=== PATIENT | male | born 1940 ===

== ENCOUNTER 2017-01-12 20:06 | Inpatient (IN) | payer OTHER, MEDICAID ==
--- NOTE | 2017-01-12 21:04 | ED PDOC ---
HPI: Psych/Substance Abuse Time Seen by Provider: 01/12/17 20:06 Chief Complaint (Nursing): Alcohol Ingestion Chief Complaint (Provider): Alcohol Ingestion History Per: Patient History/Exam Limitations: no limitations Current Symptoms Are (Timing): Still Present Additional Complaint(s): 68 y/o male brought into the emergency department for alcohol intoxication. Patient reports he has right foot pain after he fell outside his house while trying to get inside. Denies any further medical complaints. Past Medical History Reviewed: Historical Data, Nursing Documentation, Vital Signs Vital Signs: Last Vital Signs Temp 98.1 F 01/12/17 20:07 Pulse 90 01/12/17 20:07 Resp 16 01/12/17 20:07 BP 141/88 01/12/17 20:07 Pulse Ox 100 01/12/17 20:07 - Medical History PMH: No Chronic Diseases - Family History Family History: States: Unknown Family Hx - Allergies Allergies/Adverse Reactions: Allergies Allergy/AdvReac Type Severity Reaction Status Date / Time No Known Allergies Allergy Verified 01/12/17 20:07 Review of Systems ROS Statement: Except As Marked, All Systems Reviewed And Found Negative Musculoskeletal: Positive for: Foot Pain (Right) Neurological: Positive for: Other (Alcohol intoxication) Physical Exam - Reviewed Nursing Documentation Reviewed: Yes Vital Signs Reviewed: Yes - Physical Exam Appears: Positive for: Non-toxic, No Acute Distress Head Exam: Positive for: ATRAUMATIC, NORMAL INSPECTION, NORMOCEPHALIC Skin: Positive for: Normal Color, Warm, Dry Extremity: Positive for: Normal ROM, Swelling (below lateral malleolus). Negative for: Tenderness, Pedal Edema, Deformity Neurologic/Psych: Positive for: Alert, Oriented (x3) - ECG O2 Sat by Pulse Oximetry: 100 (RA) Pulse Ox Interpretation: Normal Medical Decision Making Medical Decision Making: Time: 2099 Initial impression: Alcohol Intoxication Initial plan: --Right ankle x-ray --Right foot x-ray --Reevaluation CBC,COMP, ETOH ordered XR: (+) distal fibula fxr, as read by [facility] Podiatry consult obtained and resident called to bedside. Pt however, unable to stay stil;l and screaming in residents face. Pt medicated with Ativan to relieve him of agitation. Case endorsed to [facility] Thomas at midnight pending diagnostic review and podiatry eval Scribe Attestation: Documented by Radha Jordan, acting as a scribe for Marilyn Whitaker PA-C Provider Scribe Attestation: All medical record entries made by the Scribe were at my direction and personally dictated by me. I have reviewed the chart and agree that the record accurately reflects my personal performance of the history, physical exam, medical decision making, and the department course for this patient. I have also personally directed, reviewed, and agree with the discharge instructions and disposition. Disposition - Clinical Impression Clinical Impression: Alcohol use, Ankle fracture - Patient ED Disposition Is Patient to be Admitted: Transfer of Care - Disposition Disposition: Transfer of Care Disposition Time: 00:10 Condition: STABLE Forms: [facility] ([facility]) - POA Present On Arrival: Falls Or Trauma
[2017-01-13 00:37] LABS: BASO % 0.4 % (0.0-2.0); EOS # 0.1 K/uL (0.0-0.7); EOS % 0.8 % (0.0-4.0); HEMATOCRIT 39.8 % (35.0-51.0); LYMPH # 3.1 K/uL (1.0-4.3); LYMPH % 33.9 % (20.0-40.0); MEAN CELL VOLUME 95.4 fl (80.0-94.0); MEAN CORPUSCULAR HEMOGLOBIN 31.3 pg (27.0-31.0); MEAN CORPUSCULAR HGB CONC 32.8 g/dL (33.0-37.0); MEAN PLATELET VOLUME 6.4 fl (7.2-11.7); MONO # 0.5 K/uL (0.0-0.8); MONO % 5.8 % (0.0-10.0); NEUT # 5.4 K/uL (1.8-7.0); NEUT % 59.1 % (50.0-75.0); NRBC % 0.2 % (0.0-0.0); RED CELL DISTRIBUTION WIDTH 14.4 % (11.5-14.5); WHITE BLOOD COUNT 9.2 K/uL (4.8-10.8)
[2017-01-13 00:44] LABS: ALB/GLOB RATIO 1.2 (1.0-2.1); ALCOHOL SERUM 218 mg/dl (0-10); ALKALINE PHOSPHATASE 97 U/L (38-126); ALT/SGPT 30 U/L (21-72); AST/SGOT 35 U/L (17-59); BILIRUBIN,TOTAL 0.3 mg/dl (0.2-1.3); BLOOD UREA NITROGEN 13 mg/dl (9-20); CALCIUM 8.8 mg/dL (8.4-10.2); CARBON DIOXIDE 24 mmol/L (22-30); CHLORIDE 107 mmol/L (98-107); GFR AFRICAN-AMERICAN > 60; GLUCOSE,RANDOM 94 mg/dL (75-110); POTASSIUM 3.7 MMOL/L (3.6-5.0); SODIUM 147 mmol/l (132-148); TOTAL PROTEIN 7.3 G/DL (6.3-8.2)
--- NOTE | 2017-01-13 01:05 | CP.PCM.CON ---
History of Present Illness - History of Present Illness History of Present Illness: 68 year old intoxicated male was seen in the ED for right ankle pain. Patient states he fell outside his house. He reports pain to the right ankle. Denies n/v /sob/cp/chills or v. Unable to obtain full subjective examination secondary to intoxication. Patient denies PMH, PSH, Allergies, and Meds. When asked if patient drinks alcohol, patient denies as well. Past Patient History - Past Social History Smoking Status: Never Smoked - PSYCHIATRIC Hx Substance Use: No Meds Allergies/Adverse Reactions: Allergies Allergy/AdvReac Type Severity Reaction Status Date / Time No Known Allergies Allergy Verified 01/12/17 20:07 Physical Exam - Constitutional Appears: Well, No Acute Distress - Extremities Exam Additional comments: Vasc: DP and PT 2/4 bilaterally, temperature gradient WNL, CAR GREASER <3 seconds, digit hair present, localized non pitting edema noted to the right ankle Ortho: mild-moderate pain with palpation to the right lateral malleolus, moderate pain with right ankle ROM, unable to assess manual muscle testing of lower extremity secondary to intoxication Neuro: unable to asses secondary to intoxication Derm: no ecchymosis noted, no open lesions, no erythema noted, no clinical signs of infection - Neurological Exam Additional comments: Alcohol intoxication Results - Vital Signs Recent Vital Signs: Last Vital Signs Temp 98.1 F 01/12/17 20:07 Pulse 90 01/12/17 20:07 Resp 16 01/12/17 20:07 BP 141/88 01/12/17 20:07 Pulse Ox 100 01/13/17 00:16 - Labs Result Diagrams: 01/12/17 00:24 01/12/17 00:24 Labs: Laboratory Results - last 24 hr 01/12/17 01/12/17 00:24 00:24 WBC 9.2 RBC 4.17 L Hgb 13.0 Hct 39.8 MCV 95.4 H MCH 31.3 H MCHC 32.8 L RDW 14.4 Plt Count 283 MPV 6.4 L Neut % (Auto) 59.1 Lymph % (Auto) 33.9 [place] % (Auto) 5.8 Eos % (Auto) 0.8 Baso % (Auto) 0.4 Neut # 5.4 Lymph # 3.1 [place] # 0.5 Eos # 0.1 Baso # 0.0 Sodium 147 Potassium 3.7 Chloride 107 Carbon Dioxide 24 Anion Gap 19 BUN 13 Creatinine 0.8 Est GFR ( Amer) > 60 Est GFR (Non-Af Amer) > 60 Random Glucose 94 Calcium 8.8 Total Bilirubin 0.3 AST 35 ALT 30 Alkaline Phosphatase 97 Total Protein 7.3 Albumin 4.0 Globulin 3.3 Albumin/Globulin Ratio 1.2 Alcohol, Quantitative 218 H Assessment & Plan - Assessment and Plan (Free Text) Assessment: 68 y.o alcohol intoxicated male presents to the ED for right distal fibular fracture secondary to trauma Plan: -Patient was examined and evaluated in the ED -Chart and vitals reviewed (WNL) -X-rays reviewed-distal fibular fracture noted proximal to the level of the ankle joint with fibular shortening noted and slight angulation read by me -Ronn compression with posterior splint applied to the right and instructed to nwb in crutches -Instructed on RICE protocol -Patient explained that he may need surgery in the future -Spoke to ED. Will explain to him treatment plans again when sober upon discharge. -Patient will f/u in clinic -Thank you for the consult
[2017-01-13 01:11] LABS: PARTIAL THROMBOPLASTIN TIME 40.7 Seconds (25.6-37.1)
--- NOTE | 2017-01-13 01:57 | ED PDOC ---
- Laboratory Results Result Diagrams: 01/12/17 00:24 01/12/17 00:24 - ECG O2 Sat by Pulse Oximetry: 100 (RA) <Mario Thomas - Last Filed: 01/13/17 06:10> - Laboratory Results Result Diagrams: 01/12/17 00:24 01/12/17 00:24 <Ivan Oliver - Last Filed: 01/13/17 06:54> Medical Decision Making <Mario Thomas - Last Filed: 01/13/17 06:10> <Ivan Oliver - Last Filed: 01/13/17 06:54> Medical Decision Making: Time: 6:00 --Patient is signed out to me from Thomas Thomas PA-C pending podiatry consult and final disposition. Time: 7:00 --Patient is signed out by me to Dr. Audra Hillman MD pending podiatry consult and final disposition. Scribe Attestation: Documented by Jeremy Baker, acting as a scribe for Ivan Oliver MD Provider Scribe Attestation: All medical record entries made by the Scribe were at my direction and personally dictated by me. I have reviewed the chart and agree that the record accurately reflects my personal performance of the history, physical exam, medical decision making, and the department course for this patient. I have also personally directed, reviewed, and agree with the discharge instructions and disposition. (Ivan Oliver) Disposition - POA Present On Arrival: None - Disposition Disposition: Routine/Home Disposition Time: 05:58 <Mario Thomas - Last Filed: 01/13/17 06:10> <Ivan Oliver - Last Filed: 01/13/17 06:54> - Clinical Impression Clinical Impression: Alcohol use, Ankle fracture - Disposition Condition: STABLE ED OBSERVATION Date of observation admission: 01/13/17 Time of observation admission: 00:00 <Mario Thomas - Last Filed: 01/13/17 06:10> <Ivan Oliver Andres - Last Filed: 01/13/17 06:54> - Observation admission statement Patient is being placed in observation because:: alcohol intoxication ankle fx (Mario Thomas) - Goals of Observation Goals of observation are:: podiatry evaluation/treatment of ankle injury observe until sobriety. d/w patient plan for outpatient f/u of ankle injury with podiatry. (Mario Thomas ) - Progress Note Progress Note: 01/13/17 01:56 Patient was given ativan 1 mg IM for sedation to allow for posterior splint application by podiatry resident. Will wait for sobriety/improved mentation to d/w patient f/u with podiatry clinic next week and give crutch instructions. 01/13/17 06:09 PATIENT UNABLE TO USE CRUTCHES PROPERLY UPON RE-EVALUATION. D/W PODIATRY RESIDENT WHO WILL COME TO ED TO RE-EVALUATE. (Mario Thomas)
--- NOTE | 2017-01-13 06:57 | ED PDOC ---
- Laboratory Results Result Diagrams: 01/12/17 00:24 01/12/17 00:24 - ECG O2 Sat by Pulse Oximetry: 97 (RA) Pulse Ox Interpretation: Normal Medical Decision Making Medical Decision Making: Time: 6:00 --Patient is signed out to provider from Mario Thomas PA-C pending podiatry consult and final disposition. Time: 7:00 --Patient is signed out by me to Dr. Audra Hillman MD pending podiatry consult and final disposition. Scribe Attestation: Documented by Jeremy Baker, acting as a scribe for Ivan Oliver MD Provider Scribe Attestation: All medical record entries made by the Scribe were at my direction and personally dictated by me. I have reviewed the chart and agree that the record accurately reflects my personal performance of the history, physical exam, medical decision making, and the department course for this patient. I have also personally directed, reviewed, and agree with the discharge instructions and disposition. Disposition - Clinical Impression Clinical Impression: Alcohol use, Ankle fracture - POA Present On Arrival: Falls Or Trauma - Disposition Disposition: Transfer of Care Disposition Time: 00:00 Condition: STABLE
--- NOTE | 2017-01-13 08:41 | ED PDOC ---
- Laboratory Results Result Diagrams: 01/12/17 00:24 01/12/17 00:24 - ECG O2 Sat by Pulse Oximetry: 97 (RA) Medical Decision Making Medical Decision Making: patient endorsed by Dr. Oliver. Patient has distal fib fracture. Needs PT evaluation due to inability to bear weight. Podiatry recommends admission for education and training. Disposition Doctor Will See Patient In The: Hospital - Clinical Impression Clinical Impression: Ankle fracture, Alcohol use - POA Present On Arrival: Falls Or Trauma - Disposition Disposition: Hospitalized as Observation Patient Disposition Time: 08:15 Condition: STABLE
[2017-01-13] MEDS ORDERED: Multivitamin (MVI) 10 ML, Folic Acid 1 MG, Thiamine 100 MG in Dextrose 5%/0.45% NS 1,00... IV ONE (09:30)
--- NOTE | 2017-01-13 10:25 | RAD ---
PROCEDURE: Right Ankle Radiographs. HISTORY: twist injury COMPARISON: None FINDINGS: BONES: Acute slightly displaced fracture at the distal right fibula. Small calcaneal spur. JOINTS: Normal. No osteoarthritis. Ankle mortise maintained. Talar dome intact SOFT TISSUES: Soft tissue swelling seen at the right lateral malleolus. OTHER FINDINGS: None. IMPRESSION: Acute slightly displaced fracture at the distal right fibula associated with soft tissue swelling.
--- NOTE | 2017-01-13 10:27 | RAD ---
PROCEDURE: Right Foot Radiographs. HISTORY: twist injury COMPARISON: None. FINDINGS: BONES: Acute fracture seen at the distal right fibula. No evidence of acute fracture at the right foot JOINTS: Normal. SOFT TISSUES: Normal. OTHER FINDINGS: None. IMPRESSION: Acute fracture at the distal right fibula.
[2017-01-13] MEDS: Multivitamin With Minerals Tab PO SCH (12:57)
[2017-01-13] MEDS: Enoxaparin 40 mg Syringe SC SCH (12:58)
[2017-01-13] MEDS ORDERED: Pneumococcal 23-Valent Vaccine IM ONE (13:00)
[2017-01-13] MEDS ORDERED: Influenza Vaccine 18yr & older 0.5 ML/45 MCG SYR IM ONE (13:00)
--- NOTE | 2017-01-13 14:30 | CP.PCM.HP ---
History of Present Illness - History of Present Illness History of Present Illness: 76yo M PMHx EtOH abuse admitted for right distal fibular fracture secondary to trauma. Fell outside of home. Denies fever, chills, n/v, chest pain, SOB, abd pain. Lives in a studio, has elevator in the building. PMHx EtOH abuse FHx NC SHx NC Social hx denies x3 Allergies NKDA Meds none ED course -X-rays reviewed-distal fibular fracture noted proximal to the level of the ankle joint with fibular shortening noted and slight angulation read by me Podiatry splinted pt Pt not able to use crutches PT c/s Present on Admission - Present on Admission Any Indicators Present on Admission: No Review of Systems - Review of Systems All systems: reviewed and no additional remarkable complaints except Past Patient History - Past Social History Smoking Status: Former Smoker - MUSCULOSKELETAL/RHEUMATOLOGICAL Hx Falls: Yes - PSYCHIATRIC Hx Substance Use: No - ANESTHESIA Hx Anesthesia: No Meds Allergies/Adverse Reactions: Allergies Allergy/AdvReac Type Severity Reaction Status Date / Time No Known Allergies Allergy Verified 01/12/17 20:07 Physical Exam - Constitutional Appears: Non-toxic, No Acute Distress - Head Exam Head Exam: ATRAUMATIC, NORMAL INSPECTION - Eye Exam Eye Exam: EOMI, Normal appearance Pupil Exam: PERRL - ENT Exam ENT Exam: Mucous Membranes Moist - Neck Exam Neck exam: Positive for: Normal Inspection - Respiratory Exam Respiratory Exam: Clear to Auscultation Bilateral - Cardiovascular Exam Cardiovascular Exam: REGULAR RHYTHM - GI/Abdominal Exam GI & Abdominal Exam: Normal Bowel Sounds, Soft - Extremities Exam Extremities exam: Positive for: normal inspection Additional comments: right foot casted sensation/motor grossly intact popliteal pulse 2+ - Back Exam Back exam: NORMAL INSPECTION. absent: vertebral tenderness - Neurological Exam Neurological exam: Alert, Oriented x3 - Skin Skin Exam: Dry, Warm Results - Vital Signs Recent Vital Signs: Last Vital Signs Temp 98.6 F 01/13/17 10:30 Pulse 80 01/13/17 11:22 Resp 18 01/13/17 11:22 BP 167/90 H 01/13/17 10:30 Pulse Ox 96 01/13/17 11:22 - Labs Result Diagrams: 01/12/17 00:24 01/12/17 00:24 Labs: Laboratory Results - last 24 hr 01/12/17 01/12/17 01/12/17 00:24 00:24 00:24 WBC 9.2 RBC 4.17 L Hgb 13.0 Hct 39.8 MCV 95.4 H MCH 31.3 H MCHC 32.8 L RDW 14.4 Plt Count 283 MPV 6.4 L Neut % (Auto) 59.1 Lymph % (Auto) 33.9 [place] % (Auto) 5.8 Eos % (Auto) 0.8 Baso % (Auto) 0.4 Neut # 5.4 Lymph # 3.1 [place] # 0.5 Eos # 0.1 Baso # 0.0 PT 11.5 INR 1.1 APTT 40.7 H Sodium 147 Potassium 3.7 Chloride 107 Carbon Dioxide 24 Anion Gap 19 BUN 13 Creatinine 0.8 Est GFR ( Amer) > 60 Est GFR (Non-Af Amer) > 60 POC Glucose (mg/dL) Random Glucose 94 Calcium 8.8 Total Bilirubin 0.3 AST 35 ALT 30 Alkaline Phosphatase 97 Total Protein 7.3 Albumin 4.0 Globulin 3.3 Albumin/Globulin Ratio 1.2 Alcohol, Quantitative 218 H 01/12/17 20:45 WBC RBC Hgb Hct MCV MCH MCHC RDW Plt Count MPV Neut % (Auto) Lymph % (Auto) [place] % (Auto) Eos % (Auto) Baso % (Auto) Neut # Lymph # [place] # Eos # Baso # PT INR APTT Sodium Potassium Chloride Carbon Dioxide Anion Gap BUN Creatinine Est GFR ( Amer) Est GFR (Non-Af Amer) POC Glucose (mg/dL) 85 Random Glucose Calcium Total Bilirubin AST ALT Alkaline Phosphatase Total Protein Albumin Globulin Albumin/Globulin Ratio Alcohol, Quantitative Assessment & Plan - Assessment and Plan (Free Text) Assessment: 76yo M with PMHx EtOH abuse admitted for right distal fibular fracture right distal fibular fracture -Podiatry on board -PT -pain control EtOH abuse -CIWA -librium scheduled -ativan prn -folate, thiamine -banana bag alternate with NS DVT ppx -lovenox Decision To Admit - Pt Status Changed To: Hospital Disposition Of: Observation - . Bed Request Type: Med/Surg Admitting Physician: Josias Spring
[2017-01-14 07:41] LABS: BLOOD UREA NITROGEN 9 mg/dl (9-20); CALCIUM 8.7 mg/dL (8.4-10.2); CHLORIDE 105 mmol/L (98-107); GFR AFRICAN-AMERICAN > 60; GLUCOSE,RANDOM 111 mg/dL (75-110); POTASSIUM 3.7 MMOL/L (3.6-5.0); SODIUM 143 mmol/l (132-148)
[2017-01-14 08:00] LABS: CARBON DIOXIDE 26 mmol/L (22-30)
--- NOTE | 2017-01-14 09:27 | CP.PCM.DIS ---
Provider - Provider Date of Admission: 01/13/17 00:00 Attending physician: Josias Spring MD Time Spent in preparation of Discharge (in minutes): 30 Diagnosis - Discharge Diagnosis (1) Alcohol use Status: Acute (2) Ankle fracture Status: Acute Hospital Course - Lab Results Lab Results: Most Recent Lab Values WBC 9.2 K/uL (4.8-10.8) 01/12/17 00:24 RBC 4.17 Mil/uL (4.40-5.90) L 01/12/17 00:24 Hgb 13.0 g/dL (12.0-18.0) 01/12/17 00:24 Hct 39.8 % (35.0-51.0) 01/12/17 00:24 MCV 95.4 fl (80.0-94.0) H 01/12/17 00:24 MCH 31.3 pg (27.0-31.0) H 01/12/17 00:24 MCHC 32.8 g/dL (33.0-37.0) L 01/12/17 00:24 RDW 14.4 % (11.5-14.5) 01/12/17 00:24 Plt Count 283 K/uL (130-400) 01/12/17 00:24 MPV 6.4 fl (7.2-11.7) L 01/12/17 00:24 Neut % (Auto) 59.1 % (50.0-75.0) 01/12/17 00:24 Lymph % (Auto) 33.9 % (20.0-40.0) 01/12/17 00:24 [place] % (Auto) 5.8 % (0.0-10.0) 01/12/17 00:24 Eos % (Auto) 0.8 % (0.0-4.0) 01/12/17 00:24 Baso % (Auto) 0.4 % (0.0-2.0) 01/12/17 00:24 Neut # 5.4 K/uL (1.8-7.0) 01/12/17 00:24 Lymph # 3.1 K/uL (1.0-4.3) 01/12/17 00:24 [place] # 0.5 K/uL (0.0-0.8) 01/12/17 00:24 Eos # 0.1 K/uL (0.0-0.7) 01/12/17 00:24 Baso # 0.0 K/uL (0.0-0.2) 01/12/17 00:24 PT 11.5 Seconds (9.8-13.1) 01/12/17 00:24 INR 1.1 (0.9-1.2) 01/12/17 00:24 APTT 40.7 Seconds (25.6-37.1) H 01/12/17 00:24 Sodium 143 mmol/l (132-148) 01/14/17 06:30 Potassium 3.7 MMOL/L (3.6-5.0) 01/14/17 06:30 Chloride 105 mmol/L (98-107) 01/14/17 06:30 Carbon Dioxide 26 mmol/L (22-30) 01/14/17 06:30 Anion Gap 16 (10-20) 01/14/17 06:30 BUN 9 mg/dl (9-20) 01/14/17 06:30 Creatinine 0.8 mg/dL (0.8-1.5) 01/14/17 06:30 Est GFR ( Amer) > 60 01/14/17 06:30 Est GFR (Non-Af Amer) > 60 01/14/17 06:30 POC Glucose (mg/dL) 85 mg/dL (65-110) 01/12/17 20:45 Random Glucose 111 mg/dL (75-110) H 01/14/17 06:30 Calcium 8.7 mg/dL (8.4-10.2) 01/14/17 06:30 Total Bilirubin 0.3 mg/dl (0.2-1.3) 01/12/17 00:24 AST 35 U/L (17-59) 01/12/17 00:24 ALT 30 U/L (21-72) 01/12/17 00:24 Alkaline Phosphatase 97 U/L (38-126) 01/12/17 00:24 Total Protein 7.3 G/DL (6.3-8.2) 01/12/17 00:24 Albumin 4.0 g/dL (3.5-5.0) 01/12/17 00:24 Globulin 3.3 gm/dL (2.2-3.9) 01/12/17 00:24 Albumin/Globulin Ratio 1.2 (1.0-2.1) 01/12/17 00:24 Alcohol, Quantitative 218 mg/dl (0-10) H 01/12/17 00:24 - Hospital Course Hospital Course: 76yo M PMHx EtOH abuse admitted for right distal fibular fracture secondary to trauma. Fell outside of home. Lives in a studio, has elevator in the building. PT evaluated pt for crutch teaching. Alcohol withdrawal protocol initialed for elevated serum EtOH with last CIWA score 0. Pt in understanding of NWB status while using crutches and to follow with podiatry. Pt to follow with PCP. Discharge Exam - Head Exam Head Exam: ATRAUMATIC, NORMAL INSPECTION - Eye Exam Eye Exam: Normal appearance - Neck Exam Neck exam: Full Rom - Respiratory Exam Respiratory Exam: NORMAL BREATHING PATTERN, UNREMARKABLE - Cardiovascular Exam Cardiovascular Exam: REGULAR RHYTHM - GI/Abdominal Exam GI & Abdominal Exam: Normal Bowel Sounds - Back Exam Back exam: NORMAL INSPECTION - Neurological Exam Neurological exam: Alert, Oriented x3 Additional comments: no tremor - Skin Skin Exam: Dry, Warm Discharge Plan - Follow Up Plan Condition: STABLE Disposition: HOME/ ROUTINE Instructions: Ankle Fracture (ED) Additional Instructions: no weight on right foot while using crutches follow with podiatry Referrals: Jaiden Loera DPM [[facility]] - [facility] [place] [Outside]
[2017-01-14] MEDS: Multivitamin With Minerals Tab PO SCH (09:49)
[2017-01-14] MEDS: Enoxaparin 40 mg Syringe SC SCH (09:50)
--- NOTE | 2017-01-14 13:35 | CP.PCM.PN ---
Subjective - Date & Time of Evaluation Date of Evaluation: 01/14/17 Time of Evaluation: 13:33 - Subjective Subjective: no overnight events. minimal ankle pain. tolerating PO, making urine and BM. Has not tried using crutches. Objective - Vital Signs/Intake and Output Vital Signs (last 24 hours): Temp Pulse Resp BP Pulse Ox 98.4 F 57 L 20 159/89 H 95 01/14/17 08:08 01/14/17 08:08 01/14/17 08:08 01/14/17 08:08 01/14/17 08:08 - Medications Medications: Current Medications Acetaminophen (Tylenol 325mg Tab) 650 mg PO Q6 PRN PRN Reason: Pain, Mild (1-3) Last Admin: 01/13/17 18:23 Dose: 650 mg Chlordiazepoxide (Librium) 25 mg PO Q4H PRN PRN Reason: Symptoms of alcohol withdrawl Enalapril Maleate (Vasotec) 10 mg PO DAILY [facility] Last Admin: 01/14/17 09:50 Dose: 10 mg Enoxaparin Sodium (Lovenox) 40 mg SC DAILY [facility] PRN Reason: Protocol Last Admin: 01/14/17 09:50 Dose: 40 mg Folic Acid (Folic Acid) 1 mg PO DAILY [facility] Last Admin: 01/14/17 09:50 Dose: 1 mg Lorazepam (Ativan) 1 mg IVP Q4H PRN PRN Reason: Symptoms of alcohol withdrawl Multivitamins/Minerals (Therapeutic-M Tab) 1 tab PO DAILY [facility] Last Admin: 01/14/17 09:49 Dose: 1 tab Thiamine HCl (Vitamin B1 Tab) 100 mg PO DAILY [facility] Last Admin: 01/14/17 09:50 Dose: 100 mg Tramadol HCl (Ultram) 50 mg PO Q6 PRN PRN Reason: Pain, moderate (4-7) Last Admin: 01/14/17 06:16 Dose: 50 mg - Labs Labs: 01/12/17 00:24 01/14/17 06:30 PT 11.5 Seconds (9.8-13.1) 01/12/17 00:24 INR 1.1 (0.9-1.2) 01/12/17 00:24 APTT 40.7 Seconds (25.6-37.1) H 01/12/17 00:24 - Constitutional Appears: Non-toxic, No Acute Distress - Head Exam Head Exam: ATRAUMATIC, NORMAL INSPECTION - Eye Exam Eye Exam: Normal appearance - ENT Exam ENT Exam: Mucous Membranes Moist - Neck Exam Neck Exam: Full ROM, Normal Inspection - Respiratory Exam Respiratory Exam: Clear to Ausculation Bilateral, NORMAL BREATHING PATTERN - Cardiovascular Exam Cardiovascular Exam: REGULAR RHYTHM - Extremities Exam Extremities Exam: Normal Inspection Additional comments: pt able to hold crutches, get up, put minimal weight on right foot d/t NWB status. pt had limited coordination in gait with crutches as he denied attempting practicing using crutches. - Back Exam Back Exam: NORMAL INSPECTION - Neurological Exam Neurological Exam: Alert, Oriented x3 Additional comments: no tremors - Skin Skin Exam: Dry, Warm Assessment and Plan (1) Alcohol use Status: Acute (2) Ankle fracture Status: Acute - Assessment and Plan (Free Text) Assessment: 76yo M with PMHx EtOH abuse admitted for right distal fibular fracture right distal fibular fracture -Podiatry on board -PT -pain control EtOH abuse -CIWA -librium scheduled -ativan prn -folate, thiamine DVT ppx -lovenox Dispo: CM/SW consult lives in studio with elevator PT-crutches v walker
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
[2017-01-15 06:54] LABS: BLOOD UREA NITROGEN 10 mg/dl (9-20); CALCIUM 8.9 mg/dL (8.4-10.2); CARBON DIOXIDE 29 mmol/L (22-30); CHLORIDE 105 mmol/L (98-107); GFR AFRICAN-AMERICAN > 60; GLUCOSE,RANDOM 105 mg/dL (75-110); POTASSIUM 3.9 MMOL/L (3.6-5.0); SODIUM 141 mmol/l (132-148)
[2017-01-15 08:35] VITALS: RESP 18; O2SAT 95
[2017-01-15] MEDS: Multivitamin With Minerals Tab PO SCH (09:40)
[2017-01-15] MEDS: Enoxaparin 40 mg Syringe SC SCH (09:40)
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
[2017-01-15 16:07] VITALS: BP 108/70; PULSE 80; TEMP 98.5
== END 2017-01-15 17:18 | disposition home or self-care (01) | DRG 563 ==
LOC: H.ER 20:06 → H.EROBSV 01-13 → EDBD 01-13 → UNDODISOB 01-13 05:57 → H.ERHOLD 01-13 09:31 → H.MEDSURG1 01-13 10:32 → OBSVTOIN 01-14 13:32 → H.MEDSURG1 01-14 22:32
PROVIDERS: ADMIT Family Medicine; ATTEND Family Medicine
PROC: 3E0234Z Introduction of Serum, Toxoid and Vaccine into Muscle, Percutaneous Approach (ICD-10-PCS; principal; 2017-01-14)
DX: S82.831A Other fracture of upper and lower end of right fibula, initial encounter for closed fracture (principal); I10 Essential (primary) hypertension; F10.929 Alcohol use, unspecified with intoxication, unspecified; W19.XXXA Unspecified fall, initial encounter; Z23 Encounter for immunization; Y92.008 Other place in unspecified non-institutional (private) residence as the place of occurrence of the external cause; Y90.7 Blood alcohol level of 200-239 mg/100 ml; R45.1 Restlessness and agitation; Z59.0 Homelessness

== ENCOUNTER 2017-06-18 14:22 | Emergency (ER) | payer OTHER, MEDICARE, MEDICAID ==
[2017-06-18 14:28] VITALS: PULSE 83; RESP 18; TEMP 98.1; O2SAT 95
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
--- NOTE | 2017-06-18 15:20 | RAD ---
PROCEDURE: Right Knee Radiographs. HISTORY: Pain COMPARISON: None. FINDINGS: BONES: No acute displaced fracture or dislocation . JOINTS: Joint spaces preserved. Minimal anterior superior patellar osteophyte formation JOINT EFFUSION: Trace effusion OTHER FINDINGS: None. IMPRESSION: No acute displaced fracture or dislocation. No acute displaced fracture or dislocation
== END 2017-06-18 15:59 | disposition home or self-care (01) ==
LOC: H.ER 14:22
DX: S80.01XA Contusion of right knee, initial encounter (principal); V03.10XA Pedestrian on foot injured in collision with car, pick-up truck or van in traffic accident, initial encounter; Y92.410 Unspecified street and highway as the place of occurrence of the external cause

== ENCOUNTER 2018-01-14 19:29 | Emergency (ER) | payer MEDICARE, MEDICAID ==
[2018-01-14 19:34] VITALS: BP 151/100; PULSE 82; RESP 18; TEMP 98.2; O2SAT 99
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
== END 2018-01-14 21:32 | disposition home or self-care (01) ==
LOC: H.ER 19:29
DX: F10.10 Alcohol abuse, uncomplicated (principal)

== ENCOUNTER 2018-01-28 02:16 | Emergency (ER) | payer MEDICARE, MEDICAID ==
[2018-01-28 02:54] VITALS: O2SAT 97
--- NOTE | 2018-01-28 05:50 | ED PDOC ---
HPI: Psych/Substance Abuse Time Seen by Provider: 01/28/18 02:41 Chief Complaint (Nursing): Alcohol Ingestion Chief Complaint (Provider): Alcohol abuse Past Medical History Vital Signs: Last Vital Signs Temp 98.7 F 01/28/18 02:50 Pulse 80 01/28/18 02:50 Resp 16 01/28/18 02:50 BP 125/88 01/28/18 02:50 Pulse Ox 97 01/28/18 02:50 - Family History Family History: States: Unknown Family Hx - Immunization History Hx Tetanus Toxoid Vaccination: No Hx Influenza Vaccination: No Hx Pneumococcal Vaccination: No - Home Medications Home Medications: Ambulatory Orders Medication Instructions Recorded Cholecalciferol (Vitamin D3) 50,000 unit PO QWK #8 capsule 01/15/17 [Vitamin D3] Enalapril Maleate [Vasotec] 10 mg PO DAILY #30 tab 01/15/17 traMADol [Ultram] 50 mg PO Q6 PRN #10 tab 01/15/17 - Allergies Allergies/Adverse Reactions: Allergies Allergy/AdvReac Type Severity Reaction Status Date / Time No Known Allergies Allergy Verified 06/18/17 14:29 - ECG O2 Sat by Pulse Oximetry: 97 Disposition - Clinical Impression Clinical Impression: Alcohol abuse - Patient ED Disposition Is Patient to be Admitted: No Counseled Patient/Family Regarding: Diagnosis - Disposition Disposition: Routine/Home Disposition Time: 05:51 Condition: GOOD Instructions: Alcohol Abuse and Alcoholism (DC)
[2018-01-28 06:38] VITALS: BP 131/90; PULSE 83; RESP 20; TEMP 98
== END 2018-01-28 06:29 | disposition home or self-care (01) ==
LOC: H.ER 02:16
DX: F10.10 Alcohol abuse, uncomplicated (principal)